=== PATIENT | male | born 1955 | race Caucasian/White ===

== ENCOUNTER 2017-05-27 11:36 | Emergency (ER) | payer MEDICAID, OTHER ==
[~2017-05-27] VITALS: Ht 165.1 cm; Wt 69.0 kg
[2017-05-27 11:57] VITALS: BP 153/88
== END 2017-05-27 14:20 | disposition home or self-care (01) ==
LOC: ER 13:28
DX: S80.871A Other superficial bite, right lower leg, initial encounter (principal); E11.9 Type 2 diabetes mellitus without complications; I10 Essential (primary) hypertension; W54.0XXA Bitten by dog, initial encounter; Y93.89 Activity, other specified; Y92.018 Other place in single-family (private) house as the place of occurrence of the external cause
CPT/HCPCS: 99283